=== PATIENT | female | born 1955 | race Two or more races ===

== ENCOUNTER 2019-02-02 13:14 | Day surgery (SDC) | payer OTHER ==
[~2019-02-02] VITALS: Ht 160 cm; Wt 54.6 kg
[2019-02-02] MEDS ORDERED: LACTATED RINGERS 1,000 ML IV SCH ×2 (13:55→19:00)
[2019-02-02] MEDS ORDERED: TAMO20TA PO (14:02)
[2019-02-02] MEDS ORDERED: ASPI-496 PO (14:02)
[2019-02-02] MEDS ORDERED: CEPH-375 PO (14:02)
[2019-02-02] MEDS ORDERED: SULF1TAB24 PO (14:02)
[2019-02-02] MEDS ORDERED: DENO60DI SQ (14:02)
[2019-02-02] MEDS ORDERED: ATOR20TA37 PO (14:02)
[2019-02-02] MEDS ORDERED: SERT50TA28 PO (14:02)
[2019-02-02 14:08] VITALS: BP 126/77
[2019-02-02] MEDS ORDERED: PLEASE ENTER HEIGHT AND WEIGHT MC SCH (14:30)
[2019-02-02] MEDS ORDERED: VANCOMYCIN PMX 1GM/200ML 200 ML IV ONE (15:00)
[2019-02-02] MEDS ORDERED: MIDAZOLAM 1 MG/ML, 2ML ONE (16:48)
[2019-02-02] MEDS ORDERED: FENTANYL PF 250 MCG/5ML ONE (16:49)
[2019-02-02] MEDS ORDERED: PROMETHAZINE 12.5 MG SUPP PR PRN (17:00)
[2019-02-02] MEDS ORDERED: FENTANYL PF 100 MCG/2ML IV PRN (17:00)
[2019-02-02] MEDS ORDERED: PROMETHAZINE 25 MG/ML, 1ML IM PRN ×2 (17:00)
[2019-02-02] MEDS ORDERED: ONDANSETRON 2MG/ML, 2ML IV PRN (17:00)
[2019-02-02] MEDS ORDERED: LABETALOL 5MG/ML, 20ML IV PRN (17:00)
[2019-02-02] MEDS ORDERED: HALOPERIDOL 5 MG/ML IV PRN (17:00)
[2019-02-02] MEDS ORDERED: PROMETHAZINE 25 MG SUPP PR PRN (17:00)
[2019-02-02] MEDS ORDERED: MORPHINE SULFATE 4 MG/ML, 1ML IVPush PRN (17:00)
[2019-02-02] MEDS ORDERED: ONDANSETRON ODT 8 MG PO PRN (17:00)
[2019-02-02] MEDS ORDERED: HYDROmorphone 2 MG/ML, 1ML IVPush PRN (17:00)
[2019-02-02] MEDS ORDERED: ACETAMINOPHEN 325 MG TABLET PO PRN (17:00)
[2019-02-02] MEDS ORDERED: OXYcodone 5 MG/5 ML ORAL.SOL UDC PO PRN (17:00)
[2019-02-02] MEDS ORDERED: hydrALAzine 20 MG/ML, 1ML IV PRN (17:00)
[2019-02-02] MEDS ORDERED: MEPERIDINE/PF 25MG/0.5ML IVPush PRN (17:00)
[2019-02-02] MEDS ORDERED: PROMETHAZINE 25 MG/ML, 1ML IV PRN (17:00)
[2019-02-02] MEDS ORDERED: GENTAMICIN 80 MG/2 ML ONE (17:04)
[2019-02-02] MEDS ORDERED: CEFAZOLIN 1,000 MG ONE ×2 (17:04→17:37)
[2019-02-02] MEDS ORDERED: BACITRACIN 50,000 UNIT ONE (17:05)
[2019-02-02] MEDS ORDERED: PROPOFOL 10 MG/ML, 20ML ONE (17:37)
[2019-02-02] MEDS ORDERED: DEXAMETHASONE 4 MG/ML, 1ML ONE (17:37)
[2019-02-02] MEDS ORDERED: ONDANSETRON 2MG/ML, 2ML ONE (17:37)
[2019-02-02] MEDS ORDERED: OXYcodone 5 MG/5 ML ORAL.SOL UDC ONE (17:53)
[2019-02-02] MEDS ORDERED: HYDROmorphone 2 MG/ML, 1ML IV PRN (19:30)
[2019-02-02] MEDS ORDERED: DIPHENHYDRAMINE 50 MG/ML, 1ML IVPush PRN (19:30)
[2019-02-02] MEDS ORDERED: ONDANSETRON 2MG/ML, 2ML IVPush PRN (19:30)
[2019-02-02] MEDS ORDERED: HYDROcodone/APAP 5/325 TABLET PO PRN (19:30)
[2019-02-02] MEDS ORDERED: ATORVASTATIN 20 MG TABLET PO SCH (21:00)
[2019-02-03] MEDS ORDERED: ASPIRIN 81 MG TABLET EC PO SCH (06:00)
[2019-02-03] MEDS ORDERED: SERTRALINE 50MG TABLET PO SCH (09:00)
[2019-02-03] MEDS ORDERED: TAMOXIFEN 10 MG TABLET PO SCH (09:00)
== END 2019-02-02 19:30 | disposition home or self-care (01) ==
LOC: OR 13:14 → 4NOR 18:25 → OR 19:30
PROVIDERS: ATTEND Plastic Surgery
DX: T81.32XA Disruption of internal operation (surgical) wound, not elsewhere classified, initial encounter (principal); T85.49XA Other mechanical complication of breast prosthesis and implant, initial encounter; N64.1 Fat necrosis of breast; E78.5 Hyperlipidemia, unspecified; F17.210 Nicotine dependence, cigarettes, uncomplicated; Z72.89 Other problems related to lifestyle; Z79.82 Long term (current) use of aspirin; Z79.811 Long term (current) use of aromatase inhibitors; Z79.899 Other long term (current) drug therapy; Z85.3 Personal history of malignant neoplasm of breast; Z90.12 Acquired absence of left breast and nipple; Z98.51 Tubal ligation status; Z80.3 Family history of malignant neoplasm of breast; Y83.8 Other surgical procedures as the cause of abnormal reaction of the patient, or of later complication, without mention of misadventure at the time of the procedure
CPT/HCPCS: 14001; 87015; 87070; 87075; 87116; 87205; 87206; 93005; J0690; J1100; J1580; J2250; J2405; J2704; J3010; J3370; J7120; G0378